=== PATIENT | female | born 1950 | race Hispanic/Latino ===

== ENCOUNTER → 2017-03-11 | Outpatient (CLI) | payer MEDICARE ==
--- NOTE | 2017-03-11 10:59 | MRI ---
Study: MRI of the Left Knee. Indication: PAIN IN LEFT KNEE Technique: Multiplanar, multi sequence MRI of the left knee was obtained without intravenous contrast. Comparison: None. FINDINGS: Linear increased PD signal ACL indicating a remote interstitial injury. PCL and lateral collateral ligament complex intact. MCL is lax and bowed indicating sequela of a remote MCL sprain. No acute tear. Oblique undersurface tearing posterior horn and body medial meniscus with 2 mm extrusion of the body. Free edge fraying and superior surface fraying body lateral meniscus. Extensive irregular grade 4 chondral loss of the central to lateral margin of the medial femoral condyle with cortical remodeling and subchondral cystic change. Mild cortical undulation at this site as well. Additional grade 3 chondral loss throughout the remainder of the compartment. Grade 2/3 chondrosis throughout the lateral compartment. 5 mm loose body posterior to the posterior root attachment medial meniscus. Low-grade tendinosis quadriceps tendon insertion. Patellar tendon intact. Patella normally located. At the junction medial patellar facet and apex superiorly there is a 7 mm x 7 mm grade 4 chondral lesion with prominent subchondral cystic change. Additional grade 3/4 chondrosis of the medial and midline femoral trochlea. Moderate size knee effusion. Small Greco cyst. No acute fracture. IMPRESSION: Oblique undersurface tearing posterior horn and body medial meniscus. Free edge fraying and superior surface fraying body lateral meniscus. Remote interstitial injury ACL and remote MCL sprain. Tricompartmental chondrosis most pronounced at the medial compartment as above. Moderate size knee effusion with a 5 mm loose body posterior to the medial meniscus. Low-grade tendinosis quadriceps tendon insertion. Electronically signed by: Josh Aranda MD 03/11/2017 10:57 AM CDT
== END | disposition home or self-care (01) ==
LOC: MRI 09:46
PROVIDERS: ATTEND Orthopaedic Surgery
DX: M25.462 Effusion, left knee (principal)

== ENCOUNTER → 2017-04-07 | Outpatient (CLI) | payer MEDICARE ==
--- NOTE | 2017-04-07 11:31 | MRI ---
EXAM DESCRIPTION: Ankle,Left CLINICAL HISTORY: ANKLE PAIN COMPARISON: None Available. TECHNIQUE: MRI of the left ankle is performed according to our usual protocol with multiplanar multi sequence imaging. FINDINGS: There are arthritic changes between the tarsal navicular and the medial cuneiform as well as the cuboid and the anterior aspect of the calcaneus. Scattered other areas of midfoot arthritic changes are present all of which appear chronic with subchondral cyst formation/eburnation. No bone lesion or fracture is observed. Lateral and medial ligament complexes of the ankle are intact. Subtalar joints and sinus Tarsi unremarkable. Arthritic changes in the lateral tibial plafond and with grade 3/4 chondrosis and subchondral eburnation and cyst formation. Anterior and posterior compartment tendons of the ankle unremarkable. Achilles and plantar fascia unremarkable. IMPRESSION: Chronic midfoot arthritis Chondrosis/arthritis of the lateral tibial plafond and Electronically signed by: Osmar Blanca MD 04/07/2017 11:30 AM CDT
== END | disposition home or self-care (01) ==
LOC: MRI 10:10
PROVIDERS: ATTEND Orthopaedic Surgery
DX: M19.072 Primary osteoarthritis, left ankle and foot (principal)

== ENCOUNTER → 2017-12-01 | Outpatient (CLI) | payer MEDICARE ==
--- NOTE | 2017-12-02 09:14 | CT ---
EXAM DESCRIPTION: CT right lower extremity without contrast CT left lower extremity without contrast CLINICAL HISTORY: WEAKNESS, knee pain, ankle pain COMPARISON: MRI left knee March 11, 2017 and MRI left ankle April 07, 2017 TECHNIQUE: Extremity CT of the right and left tibia and fibula including knees and ankles is performed with thin-section axial imaging. MPRs are created and reviewed as well. FINDINGS: Left lower extremity Soft tissue window images show small left knee joint effusion. The left knee is partly included on the exam with lower patella and distal femur on the upper images. Posteriorly, small Greco's cyst is not as well seen on CT as on previous MRI. Small ossific loose bodies along the posterior aspect of the knee joint are noted. These were present previously on the MRI of the knee March 11, 2017. Mild lateral patellar tilt with minimal subluxation. No fracture of the proximal tibia. Mild degenerative changes at the anterior tibial eminence. No fracture or lytic lesion of bone. No abnormality of the musculature of the left calf. Intact Achilles tendon. Bone window images show moderate degenerative changes at the knee. Subchondral cyst formation is seen in the medial femoral condyle and in the tibial plateau near the level of the tibial spines. More distally, mild degenerative changes are seen at the ankle joint. Intact appearance of posterior tendons medially and laterally. Intact appearance of the Achilles tendon. Anterior ankle tendons are unremarkable. Coronal and sagittal reformatted images confirm the findings. Right lower extremity. The lower portion of the femur and patella are included and there is a small to moderate sized knee joint effusion present. Subchondral degenerative cystic changes are seen in the medial femoral condyle and in the anterior trochlear region. Patella is minimally subluxed laterally with mild lateral patellar tilt. Subchondral cystic changes are seen in the medial and lateral tibial plateau. Degenerative changes are seen at the anterior tibial eminence. No bony destructive lesion or fracture. At the ankle, subchondral cystic changes are seen in the tibial plafond. Patellar dome appears intact. Middle subtalar facet is abnormal suggesting fibrous coalition or chronic degenerative arthrosis. Degenerative cystic changes are seen in the midfoot. The axial soft tissue window images show intact musculature of the right calf. Normal contour of the Achilles tendon. Normal posterior medial and posterior lateral ankle tendons with intact anterior ankle tendons. Coronal and sagittal reformatted images confirm the findings. IMPRESSION: Left Intact tibia and fibula with degenerative changes at the knee and ankle. Right Intact tibia and fibula with degenerative changes at the knee and ankle. This exam was performed according to our departmental dose-optimization program, which includes automated exposure control, adjustment of the mA and/or kV according to patient size and/or use of iterative reconstruction technique. Total DLP equals 352.01+341.81 mGycm. Electronically signed by: Zohaib Childers MD 12/02/2017 9:13 AM CDT
== END ==
LOC: CT 13:35
PROVIDERS: ATTEND Orthopaedic Surgery
DX: M62.81 Muscle weakness (generalized) (principal); R26.2 Difficulty in walking, not elsewhere classified

== ENCOUNTER → 2018-02-11 | Outpatient (CLI) | payer MEDICARE | LOC: GMAH 10:28 | PROVIDERS: ATTEND Family Medicine | DX: E03.9 Hypothyroidism, unspecified (principal) ==

== ENCOUNTER → 2018-04-23 | Outpatient (CLI) | payer MEDICARE ==
--- NOTE | 2018-04-23 13:55 | MRI ---
Study: MRI of the Right Shoulder. Indication: RT SHOULDER PAIN Technique: Multiplanar, multi sequence MRI of the right shoulder was obtained without intravenous contrast. Comparison: None. Findings: Moderate hypertrophic AC joint osteoarthritis. Type II acromion with mild lateral downsloping. Moderate volume subacromial/subdeltoid bursal fluid. Full-thickness, fullwidth supraspinatus tendon tearing with high-grade articular tearing throughout the supraspinatus tendon. Torn tendon fibers retracted level of the mid acromion. High-grade articular tearing superior half subscapularis tendon insertion. Teres minor tendon intact. Mild atrophy and grade 1/2 fatty infiltration supraspinatus and infraspinatus muscle bellies. Intracapsular long head biceps tendinosis. Circumferential labral truncation/degeneration. Mild glenohumeral joint osteoarthritis with small joint effusion. No acute fracture. Impression: Full-thickness, fullwidth supraspinatus tendon tear with high-grade articular tearing throughout the infraspinatus tendon. High-grade articular tearing superior half scapularis tendon. Mild atrophy and grade 1/2 fatty infiltration supraspinatus and infraspinatus muscle bellies. Intracapsular long head biceps tendinosis. Circumferential labral truncation and degeneration. Mild glenohumeral joint osteoarthritis with a small joint effusion. Moderate hypertrophic AC joint osteoarthritis. Electronically signed by: Josh Aranda MD 04/23/2018 1:53 PM CDT
== END ==
LOC: MRI 06:28
PROVIDERS: ATTEND Orthopaedic Surgery
DX: M75.101 Unspecified rotator cuff tear or rupture of right shoulder, not specified as traumatic (principal); M19.011 Primary osteoarthritis, right shoulder

== ENCOUNTER → 2018-05-18 | Outpatient (CLI) | payer MEDICARE | LOC: GMAH 11:30 | PROVIDERS: ATTEND Family Medicine | DX: D51.3 Other dietary vitamin B12 deficiency anemia (principal); E03.9 Hypothyroidism, unspecified; E78.2 Mixed hyperlipidemia ==

== ENCOUNTER → 2018-10-14 | Outpatient (CLI) | payer MEDICARE ==
--- NOTE | 2018-10-14 16:03 | CT ---
Study: CT of the Lumbar Spine. Indication: LUMBAR SPODYLOSIS Technique: Axial CT images of the lumbar spine acquired without intravenous contrast. Coronal and sagittal reformats performed. This exam was performed according to our departmental dose-optimization program, which includes automated exposure control, adjustment of the mA and/or kV according to patient size and/or use of iterative reconstruction technique. Comparison: None. Findings: Bilateral L2, L3, L4, L5, and S1 pedicle screws noted with posterior vertical stabilization rods spanning L2-L3 and separate emili spanning L4-S1. Laminectomies noted at these levels. Mild subsidence of the L2-L3 graft noted but with suspected early osseous fusion centrally. The left L5 screw is partially extraosseous distally with mild extruded cement suspected along the lateral margin of the tip. No fusion identified at L3-L4, L4-L5, or L5-S1. No subsidence at L4-L5. There is mild substance of the L5-S1 interbody graft with surrounding sclerosis of both endplates and cortical remodeling along the left lateral margin indicating pseudarthrosis formation. Vertebral body height maintained. No acute fracture. 24 degrees of levoscoliosis centered at L2. L1-L2: Severe right lateral disc space height loss with ex vacuo disc phenomenon and patchy endplate sclerosis. 3.7 mm right eccentric disc osteophyte complex without spinal canal narrowing. Severe right and mild left neural foraminal narrowing. Mild bilateral facet arthrosis. L2-L3: Post surgical changes as above with associated pronounced streak artifact. No gross bony spinal canal narrowing. Osteophytic spurring noted at the posterolateral margins of the disc, right greater than left. Mild to moderate right neural foraminal narrowing. No left neural foraminal narrowing. L3-L4: Moderate to severe right lateral disc space height loss and ex vacuo disc phenomenon. Trace left lateral listhesis of L3 on L4. 4.4 mm disc osteophyte complex indenting the ventral thecal sac without spinal canal narrowing. Moderate right and mild left neural foraminal narrowing. Moderate to severe bilateral facet arthrosis. L4-L5: 7 mm of anterolisthesis/uncovering. No gross spinal canal narrowing. The listhesis does however produce moderate to severe bilateral neural foraminal narrowing and mild flattening of the bilateral exiting L4 nerve roots. Moderate to severe bilateral facet arthrosis. No bony spinal canal narrowing. L5-S1: 7 mm listhesis/uncovering. There is resultant moderate to severe left and moderate right neural foraminal narrowing. No bony spinal canal narrowing. Colonic diverticulosis. Pronounced atherosclerosis. Moderate bilateral sacral likely joint osteoarthritis. Impression: Extensive post surgical changes of the L2 through the S1 levels. There is mild subsidence of the L2-L3 interbody graft but with early central interbody fusion. No fusion of the remaining surgical disc spaces. Pseudarthrosis at L5-S1 with interbody graft subsidence. The left L5 screw is partially extraosseous distally. Multilevel lumbar disc disease with changes most pronounced at L4-L5 where there is moderate to severe bilateral neural foraminal narrowing. No spinal canal narrowing. Electronically signed by: Josh Aranda MD 10/14/2018 4:00 PM CDT
== END ==
LOC: CT 10:49
PROVIDERS: ATTEND Neurological Surgery
DX: M47.26 Other spondylosis with radiculopathy, lumbar region (principal); M51.16 Intervertebral disc disorders with radiculopathy, lumbar region; Z98.890 Other specified postprocedural states

== ENCOUNTER → 2019-02-11 | Outpatient (CLI) | payer MEDICARE | LOC: GMAH 11:15 | PROVIDERS: ATTEND Family Medicine | DX: E03.9 Hypothyroidism, unspecified (principal); E78.00 Pure hypercholesterolemia, unspecified; I10 Essential (primary) hypertension ==

== ENCOUNTER → 2019-04-11 | Outpatient (CLI) | payer MEDICARE | LOC: GMA MATASK 10:44 | PROVIDERS: ATTEND Family Medicine | DX: E03.9 Hypothyroidism, unspecified (principal) ==

== ENCOUNTER → 2019-05-12 | Outpatient (CLI) | payer MEDICARE ==
--- NOTE | 2019-05-16 12:13 | MAM ---
EXAM DESCRIPTION: 3D Screening BILATERAL : Digital Mammography. CLINICAL HISTORY: 68 years Female ANNUAL SCREENING . No complaints and no personal history of breast cancer. Female sibling with breast cancer at age 65. Menarche age 9. Childbirth. Postmenopausal 10+ years. No HRT. Benign cyst aspiration bilaterally. Lifetime risk of developing breast cancer (Tyrer-Cuzick model)(%): 4.5. COMPARISON: 2-D digital screening bilateral mammography 12/11/2015.. No prior reports available. TECHNIQUE: Bilateral CC and MLO projection full-field images, digital tomosynthesis mammographic technique. Bilateral digital 2-D full-field MLO images. CAD not available for tomosynthesis or 2-D images. FINDINGS: The breast parenchymal density pattern is: Scattered areas of fibroglandular density. No skin thickening or nipple retraction. Bilateral vascular calcifications. Bilateral solitary microcalcifications. No new focal, stellate mass or density, focal asymmetry , and no suspicious microcalcifications bilaterally. Stable mammograms compared to prior study. Taking into account, differences in mammographic technique. IMPRESSION: Benign exam. BIRAD CATEGORY: 2 BENIGN FINDINGS. RECOMMENDATIONS: FOLLOW UP: Routine digital bilateral mammographic screening, one year interval from April 2019. Written communication explaining the IMPRESSION and follow-up, will be mailed to the patient and referring health care provider. According to the [employer], yearly mammograms are recommended starting at age 40 and continuing as long as a woman is in good health. Any breast change noted on a breast self-exam should be reported promptly to the patient's healthcare provider. Breast MRI is recommended for women with an approximately 20-25% or greater lifetime risk of breast cancer, including women with a strong family history of breast or ovarian cancer and women who have been treated for Hodgkin's disease. A negative mammographic report should not delay tissue diagnosis in patients with significant clinical history or physical findings. Extremely dense breast tissue limits the sensitivity of digital mammography. Electronically signed by: Maury See MD 05/16/2019 12:11 PM CDT
== END ==
LOC: MAMMO 10:11
PROVIDERS: ATTEND Family Medicine
DX: Z12.31 Encounter for screening mammogram for malignant neoplasm of breast (principal)

== ENCOUNTER → 2019-06-07 | Outpatient (CLI) | payer MEDICARE | END | disposition home or self-care (01) | LOC: NM 08:45 | PROVIDERS: ATTEND Nuclear Medicine Nuclear Cardiology | DX: R07.2 Precordial pain (principal) ==

== ENCOUNTER → 2019-08-15 | Outpatient (CLI) | payer MEDICARE | LOC: GMA MATASK 10:39 | PROVIDERS: ATTEND Family Medicine | DX: E03.9 Hypothyroidism, unspecified (principal) ==

== ENCOUNTER → 2019-09-29 | Outpatient (CLI) | payer MEDICARE | DX: I10 Essential (primary) hypertension (principal); E03.9 Hypothyroidism, unspecified; E11.9 Type 2 diabetes mellitus without complications ==

== ENCOUNTER → 2019-12-06 | Outpatient (CLI) | payer MEDICARE | LOC: GMA MATASK 12:08 | PROVIDERS: ATTEND Family Medicine | DX: E03.9 Hypothyroidism, unspecified (principal) ==

== ENCOUNTER → 2019-12-19 | Outpatient (CLI) | payer MEDICARE | LOC: GMA MATASK 14:18 | PROVIDERS: ATTEND Family Medicine | DX: D51.3 Other dietary vitamin B12 deficiency anemia (principal) ==

== ENCOUNTER → 2020-01-09 | Outpatient (CLI) | payer MEDICARE ==
--- NOTE | 2020-01-09 15:29 | MRI ---
EXAM DESCRIPTION: Cervical Spine: MRI. CLINICAL HISTORY: 69 years Female CERVICAL DISC DISORDER COMPARISON: MRI cervical spine without and with gadolinium IV contrast, prior to fusion surgery, February 2010. TECHNIQUE: Multiplanar, high-field MRI, multiple sequences, non-contrast Cervical spine. FINDINGS: Since the prior study, ACDF from C4 through T1 including the intervening disc spaces. No soft tissue mass or fluid. C3-4 with canal and neural foraminal narrowing but no stenosis. More neural foraminal narrowing on the left. Posterior ligament hypertrophy. Other levels show no significant canal or neural foraminal narrowing. C2-C3: Disc desiccation posterior bulge. Canal and bilateral foramina are patent. Minimal hypertrophic facet arthrosis on the left. C7-T1: Minimal disc desiccation and disc space loss. Hypertrophic facet arthrosis on the left with moderate neural foraminal narrowing. Canal and right neuroforamen are patent. T1-T2: Disc desiccation and posterior disc bulge more than the left of midline. Disc also bulges into the right foramen. Right facet hypertrophic arthrosis. There stenosis of the right neural foramen. Canal and neuroforamen are patent. Spinal alignment unremarkable. No cord compression or cord edema. Atlantoaxial joint negative.. Base of the cerebellar tonsils is above the foramen magnum. Paravertebral soft tissues negative.. Vertebral bodies are not compressed at any level. Normal marrow signal in the remaining vertebral bodies and the posterior elements. IMPRESSION: 1. ACDF from C4 through T1 since the prior study with no complications. Canal and neural foraminal narrowing at C3-4 but no stenosis. More neural foraminal narrowing on the left. Other levels with minimal canal and neural foraminal narrowing and no complications. 2. Near stenosis of the right neural foramen at T1-T2 due to hypertrophic changes. Electronically signed by: Maury See MD 01/09/2020 3:27 PM CDT
== END ==
LOC: MRI 09:08
PROVIDERS: ATTEND Psychiatry & Neurology Neurology
DX: M50.123 Cervical disc disorder at C6-C7 level with radiculopathy (principal); M48.04 Spinal stenosis, thoracic region; M51.16 Intervertebral disc disorders with radiculopathy, lumbar region; Z98.1 Arthrodesis status

== ENCOUNTER → 2020-01-11 | Outpatient (CLI) | payer MEDICARE ==
--- NOTE | 2020-01-12 08:48 | MRI ---
EXAM DESCRIPTION: Lumbar Spine w/o Contrast : Magnetic Resonance Imaging. CLINICAL HISTORY: INTERVERTEBRAL DISC DISORDER LUMBAR REGION COMPARISON: CT scan of the lumbar spine without contrast September 2018. TECHNIQUE: Multiplanar, multiple standard sequences, non contrast MRI, lumbar spine. FINDINGS: Posterior transpedicular fusion L2-S1 with transpedicular screws and unilateral connecting rods. Interbody fusion devices. L5-S1, L4-L5, L2-L3. Connecting links L2-L3 and L5-S1. Hardware appears intact. No large fluid collections. Evaluation of the foramina limited due to metallic susceptibility artifact. L5-S1: The disc is well visualized on axial T2 series 501, image 3. Interbody fusion device. Minimal endplate erosion in the midline. 8 mm grade 1 anterolisthesis stable. Posterior decompression. Moderate right neural foraminal narrowing and moderate to severe narrowing on the left. Canal is patent. No complications. L4-L5: Disc space maintained with interbody fusion device. 6 mm grade 1 anterolisthesis stable. Partial left decompression. Hypertrophic right superior facet and flavum ligaments narrowing the right posterior canal 11 mm. [id number] bilateral foraminal narrowing. L3-L4: Disc desiccation, no interbody fusion. Posterior decompression with canal widely patent. Posterior broad-based bulge. Narrowing of the left subarticular recess. But disc protrusion midline 6 mm and into the base of the right foramen which is stenotic. Mild to moderate left neural foraminal narrowing. No complications. L2-L3: Interbody fusion device and posterior decompression. Trace anterolisthesis. Canal widely patent. Moderate narrowing of the right foramen and mild to moderate narrowing of the left foramen. No complications. L1-L2: Disc desiccation and minimal disc space loss. Anterior bulging and endplate ridging. Minimal posterior bulge. Minimal degenerative hypertrophy of the ligaments and facet joints. Canal patent. Borderline right foraminal stenosis, but partially obscured by artifact. Moderate left foraminal narrowing. T12-L1: Normal signal in the disc and disc space preserved. Facets and ligaments are unremarkable. Canal and foramina are patent. Conus terminates just below the disc space. L1-L4 levoscoliosis. Paravertebral soft tissues muscle atrophy abutting the hardware.. Distal cord normal signal and caliber. Normal marrow signal in the remaining vertebral bodies and the posterior elements. Vertebral bodies are not compressed at any level. IMPRESSION: 1. Technically difficult study due to posterior spinal fusion and magnetic susceptibility artifact. Hardware is grossly intact. No complications or abnormal fluid collections. Degenerative levoscoliosis and multiple levels of disc space narrowing, foraminal narrowing or stenosis, and spondylolisthesis. 2. posterior broad-based L3-L4 disc bulge and right posterior disc herniation encroaching on the right foramen and the exiting right L3 nerve. 3. Anterolisthesis at L4-L5 and L5-S1 is stable since the prior CT scan. 4. Multifactorial borderline right foraminal stenosis at L1-L2. Moderate to severe narrowing left foramen L5-S1. Electronically signed by: Maury See MD 01/12/2020 8:46 AM CDT
== END ==
LOC: MRI 09:07
PROVIDERS: ATTEND Psychiatry & Neurology Neurology
DX: M51.16 Intervertebral disc disorders with radiculopathy, lumbar region (principal); M48.061 Spinal stenosis, lumbar region without neurogenic claudication; M43.16 Spondylolisthesis, lumbar region; M43.17 Spondylolisthesis, lumbosacral region; M41.86 Other forms of scoliosis, lumbar region; M50.123 Cervical disc disorder at C6-C7 level with radiculopathy

== ENCOUNTER → 2020-06-04 | Outpatient (CLI) | payer MEDICARE ==
--- NOTE | 2020-06-04 12:31 | CT ---
EXAM: Lumbar Spine INDICATION: intervertebral disc disorders. COMPARISON: CT lumbar spine without contrast 10/06/2018 TECHNIQUE: CT of the lumbar spine was performed without IV contrast. Multiple axial images and multiplanar reconstructions were generated. This exam was performed according to our departmental dose-optimization program, which includes automated exposure control, adjustment of the mA and/or kV according to patient size and/or use of iterative reconstruction technique. FINDINGS: For the purposes of this examination, the last fully formed intervertebral disc, which demonstrates postoperative changes, is labeled as L5-S1 reference axial image 72. Broad levoconvex scoliosis is similar to the prior examination with approximately 25 degrees Leggett angle, apex L2. Stable grade 1 anterolisthesis of L4 on L5 and L5 on S1. Stable trace retrolisthesis of L1 on L2. Vertebral body height is well maintained without evidence for compression fracture. Osteopenia. No acute fracture is identified. No destructive osseous lesion. Postoperative changes in the lumbar spine, stable from the prior examination of 10/14/2018, again there are bilateral posterior emili and screw fixation constructs spanning from L2 to S1. As on the prior study, separate rods span from L2 to L3 and L4-S1 on the left. Otherwise, hardware appears intact. Although dense streak artifact from the metallic hardware slightly limits the evaluation of immediately surrounding structures, no definite periscrew lucencies are identified. Stable appearance of the distal extraosseous left L5 screw with presumed cemented at the tip. The right S1 screw tip is also noted to be extraosseous. Similar appearance of mild subsidence at the L2-L3 interbody graft with similar partial osseous fusion centrally. As on the prior study, there is no apparent fusion at L3-L4, L4-5, or L5-S1. Stable appearance of interbody fusion device and graft material at L4-L5, without apparent subsidence. There is slight interval progression of subsidence at the L5-S1 interbody fusion device and graft. Mild progression of degenerative endplate changes noted at L1-L2. T12-L1: No high-grade osseous spinal canal or neural foraminal stenosis. L1-L2: Progressive degenerative endplate changes and disc space height loss at L1-L2. No significant central spinal canal stenosis. Bilateral facet arthropathy. Similar severe right and mild left neural foraminal stenosis. L2-L3: Postoperative changes as described above. Facet arthropathy. The spinal canal is decompressed by laminectomy. Mild to moderate right and mild left neural foraminal stenosis. L3-L4: Postoperative changes as described above. Facet arthropathy. The spinal canal is decompressed by laminectomy. Moderate bilateral neural foraminal stenosis. L4-L5: Postoperative changes as described above. Anterolisthesis. Facet arthropathy. Moderate bilateral neural foraminal stenosis is similar to the prior examination. The spinal canal is decompressed by laminectomy. L5-S1: Postoperative changes as described above. Anterolisthesis. Facet arthropathy. The spinal canal is decompressed by laminectomy. Stable severe left and moderate right neural foraminal stenosis. No apparent prevertebral soft tissue edema. Atherosclerosis. Colonic diverticulosis is noted. IMPRESSION: 1. Extensive postoperative changes from L2 to S1 as detailed above. 2. Similar to the prior examination, there is mild subsidence of the interbody graft at L2-L3 with similar partial osseous fusion centrally. Interbody graft at L4-L5 is stable without apparent subsidence. There has been slight interval progression of subsidence at the L5-S1 interbody fusion graft. No apparent interbody osseous fusion at L3-L4, L4-L5, or L5-S1. 3. The remaining multilevel degenerative postoperative changes in the lumbar spine are detailed above in a level by level analysis, overall, similar in appearance to the prior examination of 10/14/2018. Electronically signed by: Jana Mann MD 06/04/2020 12:30 PM [facility]
== END ==
LOC: CT 11:00
PROVIDERS: ATTEND Psychiatry & Neurology Neurology
DX: M51.16 Intervertebral disc disorders with radiculopathy, lumbar region (principal); M47.26 Other spondylosis with radiculopathy, lumbar region; M43.16 Spondylolisthesis, lumbar region; M48.061 Spinal stenosis, lumbar region without neurogenic claudication; Z98.890 Other specified postprocedural states

== ENCOUNTER → 2020-07-09 | Outpatient (CLI) | payer MEDICARE | LOC: GMA MATASK 10:45 | PROVIDERS: ATTEND Family Medicine | DX: D51.3 Other dietary vitamin B12 deficiency anemia (principal); E03.9 Hypothyroidism, unspecified; I10 Essential (primary) hypertension; E11.9 Type 2 diabetes mellitus without complications ==